=== PATIENT | female | born 2000 | race Two or more races ===

== ENCOUNTER → 2023-05-30 | Day surgery (SDC) | payer BC | LOC: SDC 12:23 | PROVIDERS: ATTEND Internal Medicine Gastroenterology | DX: K21.9 Gastro-esophageal reflux disease without esophagitis (principal); K59.00 Constipation, unspecified; R14.0 Abdominal distension (gaseous); R63.5 Abnormal weight gain; Z88.2 Allergy status to sulfonamides; Z90.89 Acquired absence of other organs; Z79.899 Other long term (current) drug therapy | CPT/HCPCS: 91034 ==

== ENCOUNTER 2024-03-25 07:27 | Outpatient (CLI) | payer BC | END 2024-03-25 07:28 | disposition home or self-care (01) | LOC: NM 07:27 | PROVIDERS: ATTEND Internal Medicine Gastroenterology | DX: K21.9 Gastro-esophageal reflux disease without esophagitis (principal) | CPT/HCPCS: 78264; A9541 ==